=== PATIENT | female | born 1925 | race Caucasian/White ===

== ENCOUNTER 2017-01-04 14:28 | Inpatient (IN) ==
--- NOTE | 2017-01-04 14:43 | Emergency Department Note ---
Disposition Clinical Impression: Altered mental status Qualifiers: Altered mental status type: unspecified Qualified Code(s): R41.82 - Altered mental status, unspecified Disposition: Still a Patient Condition: Fair Referrals: NONE,PCP [Primary Care Provider] - Forms: ED Satisfaction Letter Fall HPI - General Chief Complaint: ED Fall Stated Complaint: Fall yesterday; AMS and combative Time Seen by Provider: 01/04/17 14:29 Source: patient, EMS Mode of arrival: EMS Limitations: altered mental status Nursing Notes Reviewed: Yes Vital Signs Reviewed: Yes - History of Present Illness HPI Narrative: 89-year-old who is here on leave from a skilled nursing in [place] with her daughter and fell last night was disoriented would not get out of bed today would not eat or drink anything and would not answer questions. Normal she does answer questions and is responsive. Arrival the patient did wake up and tell my nurse to take the socks off. Movement of all extremities on arrival. Pt Subjective Complaint: fall Onset (ago): day(s) (1) Fall From: standing Fall Witnessed: no Place Fall Occurred: home Loss of Consciousness: none Prolonged Down Time?: no Symptoms Prior to Fall: none Context: other (Patient got up last night was going to go to the bathroom but was disoriented as she doesn't normally live at this house she walked into the bathroom there was a piece of artwork leaning against a wall she thought that was the toilet seat she put it on the floor and sent out on it and broke it) Quality: other (Able to determine severity and location obtain as patient does has Alzheimer's and is unable to answer me.) - Related Data Allergies Allergy/AdvReac Type Severity Reaction Status Date / Time Sulfa (Sulfonamide Allergy Anaphylaxis Verified 01/04/17 14:47 Antibiotics) All systems ED: reviewed and negative except as stated. Constitutional: Denies: fever, chills, weakness, weight change Eyes: Denies: eye pain, eye discharge, vision change ENT ED: Denies: ear pain, throat pain, dental pain, hearing loss, epistaxis, congestion, dysphagia Cardiovascular: Denies: chest pain, palpitations, dyspnea on exertion, edema, syncope Respiratory: Denies: cough, dyspnea, wheezes, hemoptysis, stridor Gastrointestinal: Denies: abdominal pain, nausea, vomiting, diarrhea, constipation, hematemesis, melena, hematochezia Genitourinary: Denies: dysuria, frequency, hematuria, discharge Musculoskeletal: Denies: back pain, neck pain, arthralgia, myalgia Integumentary: Denies: rash, abrasion, lesions Neurological: Reports: confusion, other. Denies: headache, weakness, numbness, paresthesias, abnormal gait, vertigo Psychiatric: Denies: anxiety, depression, suicidal thoughts, homicidal thoughts , auditory hallucinations, visual hallucinations Endocrine: Denies: fatigue Hematological/Lymphatic: Denies: easy bleeding, easy bruising Allergic/Immunologic: Denies: facial swelling, urticaria Fall PMH - Past Medical History Medical history: Reports: other - Social History Smoking Status: Unknown if ever smoked Alcohol use: Reports: unknown Drug use: Reports: unknown Physical Exam - General Limitations: no limitations General appearance: alert, in no apparent distress - Head Head exam: atraumatic, normocephalic, normal inspection - Eye Eye exam: Present: normal appearance, PERRL, EOMI - ENT ENT exam: normal exam, normal oropharynx, mucous membranes moist - Neck Neck exam: Present: normal inspection, full ROM, trachea midline - Chest Chest inspection: Present: normal inspection, symmetric chest wall rise - Respiratory Respiratory exam: Present: normal lung sounds bilaterally - Cardiovascular Cardiovascular exam: Present: regular rate, normal rhythm, normal heart sounds - Abdominal Exam Abdominal exam: Present: soft, Non-Tender. Absent: tenderness, distention, guarding, rebound, rigidity - Extremities Exam Extremities exam: Present: normal inspection, full ROM. Absent: tenderness, pedal edema - Expanded Lower Extremity Exam Neurovascular/Tendon exam: Absent: motor deficit, sensory deficit, tendon deficit Gait: observed and normal Course - Reevaluation(s) Reevaluation #1: I spoke to the power of insurance defense attorney Maria Luisa Christianson who indicates the patient is a DNR and they do not want any testing done. I did discuss with the POA that she certainly could have a subdural or some other injury from the fall and she understands that they do not want anything done it would like her to have some fluids as she hasn't been drinking but they do not want any testing done. I spoke to them and they are in agreement with the plan of just fluids. Time: 14:48 Reevaluation #2: The patient was given 500 mL bolus at this point in time the patient does respond but is still somewhat lethargic. We contacted POA again and she wants to try a little more fluid and no further testing at this time including no CT scan. Time: 16:01 Reevaluation #3: Spoke again with the POA. The patient is not really improved with respect to her responsiveness. Family members were here to our do not feel comfortable taking the patient home. POA does give permission for blood work and a CT of the head. Clear whether the patient actually suffered a syncopal episode or just fell. Time: 17:39 Vital Signs Temperature 97.1 F L 01/04/17 14:29 Pulse Rate 86 01/04/17 14:29 Respiratory Rate 16 01/04/17 14:29 Blood Pressure 181/100 01/04/17 14:29 O2 Sat by Pulse Oximetry 97 01/04/17 14:29 Temperature 97.1 F L 01/04/17 14:29 Pulse Rate 63 01/04/17 16:28 Respiratory Rate 16 01/04/17 16:28 Blood Pressure 156/75 01/04/17 16:28 O2 Sat by Pulse Oximetry 97 01/04/17 16:28 Oxygen Delivery Oxygen Delivery Room Air Fall - Lab Data Result diagrams: 01/04/17 18:10 Lab Results 01/04/17 01/04/17 Range/Units 14:41 18:10 WBC 26.8 H (4.3-11.1) K/mcL RBC 4.22 (3.82-4.97) M/mcL Hgb 10.8 L (11.5-15.4) g/dL Hct 35.6 (35.3-44.9) % MCV 84.4 (83.0-100.0) fL MCH 25.6 L (28.0-33.3) pg MCHC 30.3 L (31.6-35.5) g/dL RDW 16.2 H (11.5-14.5) % Plt Count 246 (140-400) K/mcL MPV 9.1 L (9.4-12.4) fL Nucleated RBCs/100 WBC 0.1 H (0) /100 WBC Urine Color Yellow (Yellow) Urine Clarity Clear (Clear) Urine pH 6.0 (5.0-8.0) pH Units Ur Specific [place] 1.013 (1.010-1.025) Urine Protein Negative (Neg-Trace) mg/dL Urine Glucose (UA) Normal (Normal) mg/dL Urine Ketones Negative (Negative) mg/dL Urine Blood Negative (Negative) Urine Nitrite Negative (Negative) Urine Bilirubin Negative (Negative) Urine Urobilinogen Normal (Normal) mg/dL Ur Leukocyte Esterase Negative (Negative) Ur Culture Indicated? NO (NO) - EKG Data EKG attestation: Yes I reviewed and interpreted this EKG. EKG shows normal: sinus rhythm Rate: normal Rhythm: NSR Interpretation: no acute changes S.B.Brayan - Adolph.Vinayak.ATheoRTheo Recommendation: Recommendation based on pending studies, treatments, or consults S.B.A.RTheo Report Given to: Dr Vneu LaureanoBTheoAJono Repor Time: 19:00
[2017-01-04 14:47] LABS: Bilirubin,Urine Negative (Negative); Blood,Urine Negative (Negative); Clarity,Urine Clear (Clear); Color,Urine Yellow (Yellow); Glucose,Urine (UA) Normal (Normal); Ketones,Urine Negative (Negative); Leukocyte Esterase,Urine Negative (Negative); Nitrite,Urine Negative (Negative); Protein,Urine Negative (Neg-Trace); Specific Gravity,Urine 1.013 (1.010-1.025); Urobilinogen,Urine Normal (Normal)
[2017-01-04] MEDS ORDERED: 0.9 % Sodium Chloride 500 ML IVC ONE (14:55)
[2017-01-04] MEDS: 0.9 % Sodium Chloride 250 ML IVC ONE (16:27)
[2017-01-04 18:20] LABS: Hematocrit 35.6 % (35.3-44.9); Mean Platelet Volume 9.1 fL (9.4-12.4)
[2017-01-04 18:21] LABS: Hemoglobin 10.8 g/dL (11.5-15.4); Lymphocytes # 1.6 K/mcL (0.6-4.6); Mean Corpuscular HGB Conc 30.3 g/dL (31.6-35.5); Mean Corpuscular Hemoglobin 25.6 pg (28.0-33.3); Mean Corpuscular Volume 84.4 fL (83.0-100.0); Nucleated Red Blood Cells 0.1 /100 WBC (0); Platelet Count 246 K/mcL (140-400); Red Blood Count 4.22 M/mcL (3.82-4.97); Red Cell Distribution Width 16.2 % (11.5-14.5)
[2017-01-04 18:33] LABS: BUN/Creatinine Ratio 21 (6-26); Blood Urea Nitrogen 16 mg/dL (7-20); Calcium 8.9 mg/dL (8.6-10.8); Carbon Dioxide 27 mEq/L (19-29); Chloride 103 mEq/L (98-109); Glucose 115 mg/dL (70-99); Osmolality,Calculated 288 (280-300); Potassium 3.6 mEq/L (3.5-4.5); Sodium 138 mEq/L (136-145); eGFR For African Americans > 60 (> 60); eGFR For Non-African Americans > 60 (> 60)
[2017-01-04 18:49] LABS: Basophils # 0.5 K/mcL (0.0-0.2); Eosinophils # 2.1 K/mcL (0.0-0.6); Hypersegmented Neutrophils Present (Not Present); Monocytes # 3.8 K/mcL (0.0-1.3); Neutrophils # 18.8 K/mcL (1.6-8.9); Platelet Estimate Normal (Normal)
[2017-01-04 18:52] LABS: Anisocytosis 1+ (Not Present); Reactive Lymphocytes Present (Not Present)
--- NOTE | 2017-01-04 19:39 | Emergency Department Note ---
Disposition Clinical Impression: Elevated troponin I level, Multiple falls Altered mental status Qualifiers: Altered mental status type: unspecified Qualified Code(s): R41.82 - Altered mental status, unspecified Leukocytosis Qualifiers: Leukocytosis type: unspecified Qualified Code(s): D72.829 - Elevated white blood cell count, unspecified Disposition: Admitted As Inpatient Condition: Fair Referrals: NONE,PCP [Primary Care Provider] - Forms: ED Satisfaction Letter Time of Disposition: 19:40 Fall HPI - General Chief Complaint: ED Fall Stated Complaint: Fall yesterday; AMS and combative Time Seen by Provider: 01/04/17 14:29 Source: patient, EMS Mode of arrival: EMS - History of Present Illness Place Fall Occurred: home Context: other (Patient got up last night was going to go to the bathroom but was disoriented as she doesn't normally live at this house she walked into the bathroom there was a piece of artwork leaning against a wall she thought that was the toilet seat she put it on the floor and sent out on it and broke it) - Related Data Home Medications Medication Instructions Recorded Confirmed Allopurinol 01/04/17 Levothyroxine Sodium 01/04/17 Losartan 01/04/17 Allergies Allergy/AdvReac Type Severity Reaction Status Date / Time Sulfa (Sulfonamide Allergy Anaphylaxis Verified 01/04/17 14:47 Antibiotics) Constitutional: Denies: fever, chills, weakness, weight change Eyes: Denies: eye pain, eye discharge, vision change ENT ED: Denies: ear pain, throat pain, dental pain, hearing loss, epistaxis, congestion, dysphagia Cardiovascular: Denies: chest pain, palpitations, dyspnea on exertion, edema, syncope Respiratory: Denies: cough, dyspnea, wheezes, hemoptysis, stridor Gastrointestinal: Denies: abdominal pain, nausea, vomiting, diarrhea, constipation, hematemesis, melena, hematochezia Genitourinary: Denies: dysuria, frequency, hematuria, discharge Musculoskeletal: Denies: back pain, neck pain, arthralgia, myalgia Integumentary: Denies: rash, abrasion, lesions Neurological: Reports: confusion, other. Denies: headache, weakness, numbness, paresthesias, abnormal gait, vertigo Psychiatric: Denies: anxiety, depression, suicidal thoughts, homicidal thoughts , auditory hallucinations, visual hallucinations Endocrine: Denies: fatigue Hematological/Lymphatic: Denies: easy bleeding, easy bruising Allergic/Immunologic: Denies: facial swelling, urticaria Fall PMH - Past Medical History Medical history: Reports: other - Social History Smoking Status: Unknown if ever smoked Alcohol use: Reports: unknown Drug use: Reports: unknown Physical Exam - General Limitations: no limitations General appearance: alert, in no apparent distress Course Course Narrative: Signed out, See Dr. Carlin's note for further documentation history and physical , I did speak with the patient reassess, she is alert and oriented 1, appears very weak, no focal neurologic deficits, or CT imaging was negative she did have elevated leukocytosis with a lymphocyte predominance concerning for CLL with no known history per her caregivers, she is originally in a [facility] assisted living, at [facility] most of her records. She with multiple falls, no ICH on her head CT, troponin elevated 0.09 in the setting of previous CABG and heart stents, I spoke with her power of contracts attorney her daughter, who states that she is a DNR CC, DNI, and only one supportive care, lab draws are okay, supportive care such as airway suctioning, I discussed that likely she will need skilled facility placement, and the daughter agrees to inpatient admission for social work consultation, supportive care and eventual placement in [place] if possible - Reevaluation(s) Reevaluation #1: Admitted to Dr Escobedo. POA is Maria Luisa Ashfordmichael [phone]. Vital Signs Temperature 97.1 F L 01/04/17 14:29 Pulse Rate 86 01/04/17 14:29 Respiratory Rate 16 01/04/17 14:29 Blood Pressure 181/100 01/04/17 14:29 O2 Sat by Pulse Oximetry 97 01/04/17 14:29 Temperature 97.1 F L 01/04/17 14:29 Pulse Rate 52 01/04/17 20:10 Respiratory Rate 18 01/04/17 20:10 Blood Pressure 159/76 01/04/17 20:10 O2 Sat by Pulse Oximetry 96 01/04/17 20:10 Oxygen Delivery Oxygen Delivery Room Air Fall - Differential Diagnosis Likely: syncope - Medical Records Medical records reviewed: Yes I reviewed the patient's medical records. - Lab Data Lab results reviewed: Yes I reviewed the patient's lab results. Result diagrams: 01/04/17 18:10 01/04/17 18:10 Lab Results 01/04/17 01/04/17 01/04/17 Range/Units 14:41 18:10 18:10 WBC 26.8 H (4.3-11.1) K/mcL RBC 4.22 (3.82-4.97) M/mcL Hgb 10.8 L (11.5-15.4) g/dL Hct 35.6 (35.3-44.9) % MCV 84.4 (83.0-100.0) fL MCH 25.6 L (28.0-33.3) pg MCHC 30.3 L (31.6-35.5) g/dL RDW 16.2 H (11.5-14.5) % Plt Count 246 (140-400) K/mcL MPV 9.1 L (9.4-12.4) fL Seg Neutrophils % 70.0 % Lymphocytes % 6.0 % Monocytes % 14.0 % Eosinophils % 8.0 % Basophils % 2.0 % Neutrophils # 18.8 H (1.6-8.9) K/mcL Lymphocytes # 1.6 (0.6-4.6) K/mcL Monocytes # 3.8 H (0.0-1.3) K/mcL Eosinophils # 2.1 H (0.0-0.6) K/mcL Basophils # 0.5 H (0.0-0.2) K/mcL Nucleated RBCs/100 WBC 0.1 H (0) /100 WBC Hypersegmented Neuts Present A (Not Present) Reactive Lymphocytes Present A (Not Present) Platelet Estimate Normal (Normal) Anisocytosis 1+ A (Not Present) Sodium 138 (136-145) mEq/L Potassium 3.6 (3.5-4.5) mEq/L Chloride 103 (98-109) mEq/L Carbon Dioxide 27 (19-29) mEq/L BUN 16 (7-20) mg/dL Creatinine 0.78 (0.57-1.11) mg/dL Est GFR ( Amer) > 60 (> 60) Est GFR (Non-Af Amer) > 60 (> 60) BUN/Creatinine Ratio 21 (6-26) Glucose 115 H (70-99) mg/dL Calculated Osmolality 288 (280-300) Calcium 8.9 (8.6-10.8) mg/dL Troponin I (0-0.03) ng/mL Urine Color Yellow (Yellow) Urine Clarity Clear (Clear) Urine pH 6.0 (5.0-8.0) pH Units Ur Specific [place] 1.013 (1.010-1.025) Urine Protein Negative (Neg-Trace) mg/dL Urine Glucose (UA) Normal (Normal) mg/dL Urine Ketones Negative (Negative) mg/dL Urine Blood Negative (Negative) Urine Nitrite Negative (Negative) Urine Bilirubin Negative (Negative) Urine Urobilinogen Normal (Normal) mg/dL Ur Leukocyte Esterase Negative (Negative) Ur Culture Indicated? NO (NO) 01/04/17 Range/Units 18:10 WBC (4.3-11.1) K/mcL RBC (3.82-4.97) M/mcL Hgb (11.5-15.4) g/dL Hct (35.3-44.9) % MCV (83.0-100.0) fL MCH (28.0-33.3) pg MCHC (31.6-35.5) g/dL RDW (11.5-14.5) % Plt Count (140-400) K/mcL MPV (9.4-12.4) fL Seg Neutrophils % % Lymphocytes % % Monocytes % % Eosinophils % % Basophils % % Neutrophils # (1.6-8.9) K/mcL Lymphocytes # (0.6-4.6) K/mcL Monocytes # (0.0-1.3) K/mcL Eosinophils # (0.0-0.6) K/mcL Basophils # (0.0-0.2) K/mcL Nucleated RBCs/100 WBC (0) /100 WBC Hypersegmented Neuts (Not Present) Reactive Lymphocytes (Not Present) Platelet Estimate (Normal) Anisocytosis (Not Present) Sodium (136-145) mEq/L Potassium (3.5-4.5) mEq/L Chloride (98-109) mEq/L Carbon Dioxide (19-29) mEq/L BUN (7-20) mg/dL Creatinine (0.57-1.11) mg/dL Est GFR ( Amer) (> 60) Est GFR (Non-Af Amer) (> 60) BUN/Creatinine Ratio (6-26) Glucose (70-99) mg/dL Calculated Osmolality (280-300) Calcium (8.6-10.8) mg/dL Troponin I 0.09 H* (0-0.03) ng/mL Urine Color (Yellow) Urine Clarity (Clear) Urine pH (5.0-8.0) pH Units Ur Specific [place] (1.010-1.025) Urine Protein (Neg-Trace) mg/dL Urine Glucose (UA) (Normal) mg/dL Urine Ketones (Negative) mg/dL Urine Blood (Negative) Urine Nitrite (Negative) Urine Bilirubin (Negative) Urine Urobilinogen (Normal) mg/dL Ur Leukocyte Esterase (Negative) Ur Culture Indicated? (NO) - Radiology Data Radiology results reviewed: Yes I reviewed the patient's radiology results. Head CT 01/04/17 17:37 IMPRESSION: 1. No acute intracranial abnormality. 2. Moderate chronic white matter microvascular ischemic changes. 3. Remote lacunar infarct in the left caudate nucleus. D/ / Shane Marvin MD / Shane Marvin MD Interpreting Provider: Shane Marvin MD
--- NOTE | 2017-01-04 21:43 | Internal Med History&Physical ---
Date of Encounter: 01/04/17 Time of Encounter: 21:39 Assessment and Plan (1) Dementia Current visit: Yes Status: Acute Per history the patient has mild dementia We will monitor mental status closely. Avoid excessive sedation. Frequent reorientation. Delirium precautions. Fall precautions. High risk for complications due to altered mental status. Qualifiers: Dementia type: unspecified type Dementia behavioral disturbance: without behavioral disturbance Qualified Code(s): F03.90 - Unspecified dementia without behavioral disturbance (2) Hypothyroidism Current visit: Yes Status: Acute Check TSH and free T4. Qualifiers: Hypothyroidism type: unspecified Qualified Code(s): E03.9 - Hypothyroidism , unspecified (3) Altered mental status Current visit: Yes Status: Acute Could be secondary to dementia versus infection versus medication side effect, possible endocrine abnormality. Supportive care. IV fluids. Avoid sedation. Fall precautions. Qualifiers: Altered mental status type: disorientation Qualified Code(s): R41.0 - Disorientation, unspecified (4) Elevated troponin I level Current visit: Yes Status: Acute Trend troponin. Rule out ACS. The patient denies chest pain. EKG is nondiagnostic. (5) Multiple falls Current visit: Yes Status: Acute PT OT evaluation. (6) DVT prophylaxis Current visit: Yes Status: Acute Ambulate with assistance. I will avoid any anticoagulation due to recent multiple falls and high fall risk with exceedingly high risk for injury and intracranial bleed. Internal Medicine - H&P: HPI Chief complaint: Altered mental status Admitted From: Emergency Dept Plans for Post Hospital Care: Transfer Senior Care Facility History of present illness: Ms. Stewart is a 89 year old female with past medical history significant for hypothyroidism who was brought to the hospital for evaluation of altered mental status. History is limited by confusion. The history was obtained from records and discussion with the emergency department physician. I have called the family but so far I have not been able to get in touch with him. Patient is visiting her daughter and since last night she appeared to be confused. Today she suffered a fall and was found down. Per ER report she had her head. On evaluation in the emergency department she was awake alert oriented 1, not answering questions appropriately. On further workup troponin was mildly elevated. She was referred for admission and further care. Review of systems past medical history family history and social history per medical records otherwise unobtainable due to patient's dementia and altered mental status. Past Med Surg Social Fam HX - Past Medical History Medical history: other - Social History Smoking Status: Unknown if ever smoked Smokeless Tobacco Status: No Alcohol use: unknown Drug use: unknown - Family History Mother Adopted: [employer]: ROBERT Family Member Ethnicity: Non- Living Status: Age at : 89 Cause of : BREAST CANCER Hx Family Cancer: Yes Hx Family Endocrine Disorder: Yes (DM) Internal Medicine - H&P: Meds Allopurinol 01/04/17 [History] Levothyroxine Sodium 01/04/17 [History] Losartan 01/04/17 [History] Allergies Sulfa (Sulfonamide Antibiotics) Allergy (Verified 01/04/17 14:47) Anaphylaxis All Systems PM: A 10-system review of systems was performed and is negative for pertinent findings except as documented above in the HPI. - Constitutional Vitals: Temp Pulse Resp BP Pulse Ox 98.5 F 58 20 181/67 95 01/04/17 21:23 01/04/17 21:23 01/04/17 21:23 01/04/17 21:23 01/04/17 21:23 General appearance: Present: A&O X 1 - Respiratory Respiratory exam: Present: CTAB. Absent: accessory muscle use, rales, rhonchi, wheezes - Cardiovascular Cardiovascular exam: Present: RRR, +S1, +S2. Absent: diastolic murmur, gallop, rubs, systolic murmur - GI/Abdominal GI/Abdominal exam: Present: normal bowel sounds, soft, no peritoneal signs. Absent: distended, tenderness - Extremities Exam Extremities exam: Present: warm, radial pulses palpable and symetrical. Absent : calf tenderness, cyanotic, pedal edema - Neurological Exam Neurological exam: Present: CN II-XII intact, no focal deficits. Absent: pronater drift, facial droop, speech deficit - Skin Skin exam: Present: dry, intact Internal Med - H&P Results - Labs CBC & Chem 7: 01/04/17 18:10 01/04/17 18:10 - EKG Data EKG shows normal: sinus rhythm (75 BPM, nonspecific T-wave changes), axis, intervals
[2017-01-04] MEDS ORDERED: Acetaminophen 325 MG TABLET PO PRN (22:02)
[2017-01-04 22:40] LABS: Thyroid Stimulating Hormone 3.136 mcIU/mL (0.350-4.840); Triiodothyronine (T3) Free 1.73 pg/mL (1.71-3.71)
[2017-01-05] MEDS ORDERED: 0.9 % Sodium Chloride 1,000 ML IVC SCH (00:30)
[2017-01-05 01:34] LABS: Hemoglobin 9.9 g/dL (11.5-15.4); Mean Corpuscular Hemoglobin 24.8 pg (28.0-33.3); Mean Corpuscular Volume 82.7 fL (83.0-100.0); Mean Platelet Volume 8.9 fL (9.4-12.4); Nucleated Red Blood Cells 0.2 /100 WBC (0); Platelet Count 255 K/mcL (140-400); Red Blood Count 3.99 M/mcL (3.82-4.97)
[2017-01-05 01:48] LABS: BUN/Creatinine Ratio 19 (6-26); Blood Urea Nitrogen 15 mg/dL (7-20); Calcium 8.6 mg/dL (8.6-10.8); Carbon Dioxide 30 mEq/L (19-29); Chloride 104 mEq/L (98-109); Glucose 88 mg/dL (70-99); Osmolality,Calculated 288 (280-300); Potassium 3.6 mEq/L (3.5-4.5); Sodium 139 mEq/L (136-145); eGFR For African Americans > 60 (> 60); eGFR For Non-African Americans > 60 (> 60)
[2017-01-05 02:11] LABS: Eosinophils # 0.5 K/mcL (0.0-0.6); Lymphocytes # 1.9 K/mcL (0.6-4.6); Monocytes # 0.9 K/mcL (0.0-1.3)
[2017-01-05 02:12] LABS: Basophils # 1.4 K/mcL (0.0-0.2)
[2017-01-05 02:13] LABS: Platelet Estimate Normal (Normal)
[2017-01-05 02:17] LABS: Neutrophils # 15.4 K/mcL (1.6-8.9)
[2017-01-05] MEDS: 0.9 % Sodium Chloride 250 ML IVC ONE (10:35)
--- NOTE | 2017-01-05 16:38 | Internal Med Progress Note ---
Date of Encounter: 01/05/17 Time of Encounter: 09:00 - Assessment and plan (1) Altered mental status Current Visit: Yes Status: Acute Assessment and plan: Etiology is undetermined. Possibly due to mild dehydration. No signs of infection so far. Will place patient on continuous cardiac monitoring, avoid sedatives. Patient has a chronic pain pump. If mental status does not improve , may need to consider adjusting the pain pump dose. Qualifiers: Altered mental status type: disorientation Qualified Code(s): R41.0 - Disorientation, unspecified (2) Elevated troponin I level Current Visit: Yes Status: Acute Assessment and plan: Troponin 0.09/0.08/0.06. Patient denies chest pain. Probably demand ischemia. (3) Multiple falls Current Visit: Yes Status: Acute Assessment and plan: Etiology is unetermined. Patient has dementia and at old age. Will place patient on physical therapy and occupational therapy. (4) Leukocytosis Current Visit: Yes Status: Acute Assessment and plan: Probably reactive. No signs of infection so far. Will follow-up white count in a.m. Qualifiers: Leukocytosis type: leukemoid reaction Qualified Code(s): D72.823 - Leukemoid reaction (5) Dementia Current Visit: Yes Status: Acute Assessment and plan: Continue home medications Qualifiers: Dementia type: unspecified type Dementia behavioral disturbance: without behavioral disturbance Qualified Code(s): F03.90 - Unspecified dementia without behavioral disturbance (6) Hypothyroidism Current Visit: Yes Status: Acute Assessment and plan: Continue home Synthroid. TSH is within normal limits Qualifiers: Hypothyroidism type: unspecified Qualified Code(s): E03.9 - Hypothyroidism , unspecified (7) DVT prophylaxis Current Visit: Yes Status: Acute Assessment and plan: EPCD, no anticoagulation because of recent fall - Time Spent With Patient 25 - 35 minutes - Subjective Interval history: Patient is a 89-year-old female with history of dementia, hypothyroidism, hypertension admitted for altered mental status and fall. I saw and examined the patient today. Patient complain epigastric area pain. Vital signs stable. BP is high but get down on by mouth blood pressure medication. I have discussed that with the patient's daughter, POA, Ms. Maria Luisa Valencia on phone. I was told patient has chronic epigastric pain which is due to her pancreas mass. Mrs. Christianson does not want any further aggressive diagnostic or therapeutic management. We will continue IV fluid, place patient back on pureed diet. PTOT evaluation and social work consult for placement. - Constitutional Vitals: Temp Pulse Resp BP Pulse Ox 98.0 F 56 14 157/76 96 01/05/17 15:24 01/05/17 15:24 01/05/17 15:24 01/05/17 15:24 01/05/17 15:24 General appearance: Present: A&O X 1, pleasant, answers questions appropriately - Head Head exam: Present: atraumatic, normocephalic - Eye Eye exam: Present: PERRL, conjuntiva pink, sclera anicteric Pupils: Present: PERRL - Neck Neck exam general surgery: Present: supple, trachea midline. Absent: lymphadenopathy - Respiratory Respiratory exam: Present: CTAB. Absent: accessory muscle use, rales, rhonchi, wheezes - Cardiovascular Cardiovascular exam: Present: RRR, +S1, +S2. Absent: diastolic murmur, gallop, rubs, systolic murmur - GI/Abdominal GI/Abdominal exam: Present: normal bowel sounds, soft, tenderness (Mild epigastric tenderness.), no peritoneal signs. Absent: distended - Extremities Exam Extremities exam: Present: warm, radial pulses palpable and symetrical. Absent : calf tenderness, cyanotic, pedal edema - Neurological Exam Neurological exam: Present: CN II-XII intact, oriented X3, no focal deficits. Absent: pronater drift, facial droop, speech deficit - Skin Skin exam: Present: dry, intact Internal Medicine: Result - Labs CBC & Chem 7: 01/05/17 01:30 01/05/17 01:30 Labs: Short CBC 01/05/17 Range/Units 01:30 WBC 23.4 H (4.3-11.1) K/mcL Hgb 9.9 L (11.5-15.4) g/dL Hct 33.0 L (35.3-44.9) % Plt Count 255 (140-400) K/mcL Neutrophils # 15.4 H (1.6-8.9) K/mcL BMP 01/05/17 01:30 Sodium 139 Potassium 3.6 Chloride 104 Carbon Dioxide 30 H BUN 15 Creatinine 0.81 Glucose 88 Calcium 8.6 Cardiac Enzymes 01/05/17 01/05/17 Range/Units 01:30 05:49 Troponin I 0.08 H* 0.06 H* (0-0.03) ng/mL - Impressions Impressions Abdomen/Pelvis CT 01/05/17 09:17 IMPRESSION: 1. Cardiomegaly with small bilateral pleural effusions, and thickened interlobular septa likely indicating interstitial edema. There is atelectasis in both lungs 2. 3.5 x 2.8 cm mass of the tail of the pancreas. Recommend contrast-enhanced CT for better characterization 3. Borderline splenomegaly 4. Sigmoid diverticulosis 5. Small amount of free pelvic fluid 6. Status post cholecystectomy and hysterectomy D/ / Isaiah Mari MD / Isaiah Mari MD Interpreting Provider: Isaiah Mari MD Chest CT 01/05/17 09:17 IMPRESSION: 1. Cardiomegaly with small bilateral pleural effusions, and thickened interlobular septa likely indicating interstitial edema. There is atelectasis in both lungs 2. 3.5 x 2.8 cm mass of the tail of the pancreas. Recommend contrast-enhanced CT for better characterization 3. Borderline splenomegaly 4. Sigmoid diverticulosis 5. Small amount of free pelvic fluid 6. Status post cholecystectomy and hysterectomy D/ / Isaiah Mari MD / Isaiah Mari MD Interpreting Provider: Isaiah Mari MD Consult Discharge Plan - Plan Referrals: NONE,PCP [Primary Care Provider] -
--- NOTE | 2017-01-05 17:47 | Electrocardiograph Report ---
[place] [id number] Test Date: 2017-01-04 Pat Name: Jen Stewart Department: 103 Room: 3B22 Gender: F Office Support Clerk: ESTHER : [id number] Requested By: Taqueria Carlin Order Number: [id number] Reading MD: Mary Banegas Measurements Intervals [place] Rate: 76 P: 31 [place]: 181 QRS: -26 QRSD: 81 T: 76 QT: 365 QTc: 396 Interpretive Statements SINUS RHYTHM BORDERLINE LEFT AXIS DEVIATION NONSPECIFIC T-WAVE ABNORMALITY Electronically Signed On 01-05-2017 17:45:38 EDT by Mary Banegas
[2017-01-05] MEDS: 0.9 % Sodium Chloride 1,000 ML IVC SCH (23:42)
[2017-01-06 04:29] LABS: Eosinophils # 1.6 K/mcL (0.0-0.6); Hematocrit 37.7 % (35.3-44.9); Hemoglobin 11.1 g/dL (11.5-15.4); Mean Corpuscular HGB Conc 29.4 g/dL (31.6-35.5); Mean Corpuscular Hemoglobin 24.6 pg (28.0-33.3); Mean Corpuscular Volume 83.4 fL (83.0-100.0); Mean Platelet Volume 9.3 fL (9.4-12.4); Nucleated Red Blood Cells 0.3 /100 WBC (0); Platelet Count 328 K/mcL (140-400); Red Blood Count 4.52 M/mcL (3.82-4.97); Red Cell Distribution Width 15.9 % (11.5-14.5)
[2017-01-06 04:46] LABS: BUN/Creatinine Ratio 15 (6-26); Blood Urea Nitrogen 12 mg/dL (7-20); Carbon Dioxide 30 mEq/L (19-29); Chloride 102 mEq/L (98-109); Glucose 80 mg/dL (70-99); Osmolality,Calculated 287 (280-300); Potassium 3.7 mEq/L (3.5-4.5); Sodium 139 mEq/L (136-145); eGFR For African Americans > 60 (> 60); eGFR For Non-African Americans > 60 (> 60)
[2017-01-06 04:56] LABS: Basophils # 0.3 K/mcL (0.0-0.2); Platelet Estimate Normal (Normal)
[2017-01-06] MEDS: Ondansetron 4 MG/2 ML VIAL IVP PRN (05:55)
--- NOTE | 2017-01-06 09:25 | Internal Med Progress Note ---
Date of Encounter: 01/06/17 Time of Encounter: 09:25 - Assessment and plan (1) Altered mental status Current Visit: Yes Status: Acute Assessment and plan: Pt admitted for AMS, per daughter, today has become worse. Pt is not speaking and is responsive to verbal and painful stimuli. Pt was able to ambulate yesterday, however, today seems drowsy. Leukocytosis has increased today to 32.1. I have ordered a repeat that has not returned yet. I have ordered at straight cath UA/culture, prior on admission was negative. Pt did not receive any narcotic pain medications overnight. Will continue to look for source of infection and investigate reasons for AMS. Head CT 01/04/17 17:37 IMPRESSION: 1. No acute intracranial abnormality. 2. Moderate chronic white matter microvascular ischemic changes. 3. Remote lacunar infarct in the left caudate nucleus. D/ / Shane Marvin MD / Shane Marvin MD Interpreting Provider: Shane Marvin MD Chest X-Ray 01/04/17 20:38 IMPRESSION: 1. Enlarged cardiac silhouette. 2. Otherwise no acute cardiopulmonary abnormality. D/ / 01/04/2017 21:21:25 Monica Brooks MD / juliane Interpreting Provider: Monica Brooks MD Abdomen/Pelvis CT 01/05/17 09:17 IMPRESSION: 1. Cardiomegaly with small bilateral pleural effusions, and thickened interlobular septa likely indicating interstitial edema. There is atelectasis in both lungs 2. 3.5 x 2.8 cm mass of the tail of the pancreas. Recommend contrast-enhanced CT for better characterization 3. Borderline splenomegaly 4. Sigmoid diverticulosis 5. Small amount of free pelvic fluid 6. Status post cholecystectomy and hysterectomy D/ / Isaiah Mari MD / Isaiah Mari MD Interpreting Provider: Isaiah Mari MD Chest X-Ray 01/04/17 20:38 IMPRESSION: 1. Enlarged cardiac silhouette. 2. Otherwise no acute cardiopulmonary abnormality. D/ / 01/04/2017 21:21:25 Monica Brooks MD / juliane Interpreting Provider: Monica Brooks MD Chest CT 01/05/17 09:17 IMPRESSION: 1. Cardiomegaly with small bilateral pleural effusions, and thickened interlobular septa likely indicating interstitial edema. There is atelectasis in both lungs 2. 3.5 x 2.8 cm mass of the tail of the pancreas. Recommend contrast-enhanced CT for better characterization 3. Borderline splenomegaly 4. Sigmoid diverticulosis 5. Small amount of free pelvic fluid 6. Status post cholecystectomy and hysterectomy D/ / Isaiah Mari MD / Isaiah Mari MD Interpreting Provider: Isaiah Mari MD Qualifiers: Altered mental status type: disorientation Qualified Code(s): R41.0 - Disorientation, unspecified (2) Elevated troponin I level Current Visit: Yes Status: Acute Assessment and plan: Elevation was flat and adynamic, most likely due to demand. Echo yesterday showed LVEF 60-65%, mild LV hypertrophy, moderate diastolic dysfucntion, Mild AR , MR, TR, and moderate pulmonary htn. Redraw level for AMS and to assess for change in level. (3) Multiple falls Current Visit: Yes Status: Acute Assessment and plan: PT/OT pending. Pt lives in assisted living in [place]. Pt is visiting daughter. Etiology uncertain, could be multifactorial due to infection, advancing dementia , or weakness. (4) Leukocytosis Current Visit: Yes Status: Acute Assessment and plan: Significantly elevated from yesterday. Redraw pending at this time. UA ordered. Imaging appears to be negative. Pt endorses low abd pain with palpation and has increased AMS. Continue to monitor. Vitals are WNL and no sepsis criteria have been met at this time. Qualifiers: Leukocytosis type: leukemoid reaction Qualified Code(s): D72.823 - Leukemoid reaction (5) Dementia Current Visit: Yes Status: Acute Assessment and plan: Continue home medications Qualifiers: Dementia type: unspecified type Dementia behavioral disturbance: without behavioral disturbance Qualified Code(s): F03.90 - Unspecified dementia without behavioral disturbance (6) Hypothyroidism Current Visit: Yes Status: Acute Assessment and plan: Continue home medication. Chronic. Labs WNL. Qualifiers: Hypothyroidism type: unspecified Qualified Code(s): E03.9 - Hypothyroidism , unspecified (7) DVT prophylaxis Current Visit: Yes Status: Acute Assessment and plan: EPCD, no anticoagulation because of recent fall - Time Spent With Patient less than 15 minutes - Subjective Interval history: Pt was seen and assessed at 0925 this a.m. Daughter is in room. Pt is from [place] and is staying with daughter temporarily while the other daughter, who lives in [place], is on vacation. Pt opens eyes briefly to verbal stimuli , daughter states that this is a huge change from normal. Pt indicates pain to low abd with palpation. Pt does not speak, is normally verbal. - Constitutional Vitals: Temp Pulse Resp BP Pulse Ox 98.1 F 59 16 184/78 94 01/06/17 07:40 01/06/17 07:40 01/06/17 07:40 01/06/17 07:40 01/06/17 07:40 General appearance: Present: cooperative, pleasant. Absent: answers questions appropriately - Head Head exam: Present: normal inspection - Eye Eye exam: Present: normal appearance, conjuntiva pink - ENT ENT exam: Present: mucous membranes moist, normal exam, normal external ear exam - Respiratory Respiratory exam: Absent: accessory muscle use, chest wall tenderness, rales, respiratory distress, rhonchi, wheezes - Cardiovascular Cardiovascular exam: Present: RRR, +S1, +S2. Absent: diastolic murmur, systolic murmur - GI/Abdominal GI/Abdominal exam: Present: normal bowel sounds, soft, tenderness. Absent: distended - Extremities Exam Extremities exam: Present: normal capillary refill, pedal edema, radial pulses palpable and symetrical. Absent: tenderness - Neurological Exam Neurological exam: Present: altered, speech deficit. Absent: facial droop - Skin Skin exam: Present: dry, intact, warm Internal Medicine: Result - Labs CBC & Chem 7: 01/06/17 03:21 01/06/17 03:21 Labs: Short CBC 01/06/17 Range/Units 03:21 WBC 32.1 H* (4.3-11.1) K/mcL Hgb 11.1 L (11.5-15.4) g/dL Hct 37.7 (35.3-44.9) % Plt Count 328 (140-400) K/mcL Neutrophils # 27.0 H (1.6-8.9) K/mcL BMP 01/06/17 03:21 Sodium 139 Potassium 3.7 Chloride 102 Carbon Dioxide 30 H BUN 12 Creatinine 0.80 Glucose 80 Calcium 9.0 Consult Discharge Plan - Plan Referrals: NONE,PCP [Primary Care Provider] -
[2017-01-06 10:32] LABS: Bilirubin,Urine Negative (Negative); Blood,Urine Negative (Negative); Clarity,Urine Clear (Clear); Color,Urine Yellow (Yellow); Glucose,Urine (UA) Normal (Normal); Ketones,Urine Negative (Negative); Leukocyte Esterase,Urine Negative (Negative); Nitrite,Urine Negative (Negative); PH,Urine 6.5 pH Units (5.0-8.0); Protein,Urine Negative (Neg-Trace); Specific Gravity,Urine 1.009 (1.010-1.025); Urobilinogen,Urine Normal (Normal)
[2017-01-06] MEDS: 0.9 % Sodium Chloride 1,000 ML IVC SCH (11:43)
[2017-01-07] MEDS: 0.9 % Sodium Chloride 1,000 ML IVC SCH ×2 (03:10→08:22)
[2017-01-07 04:23] LABS: Mean Corpuscular Volume 83.5 fL (83.0-100.0)
[2017-01-07 04:24] LABS: Hemoglobin 10.3 g/dL (11.5-15.4); Mean Corpuscular HGB Conc 30.3 g/dL (31.6-35.5); Mean Corpuscular Hemoglobin 25.3 pg (28.0-33.3); Mean Platelet Volume 9.5 fL (9.4-12.4); Nucleated Red Blood Cells 0.3 /100 WBC (0); Platelet Count 263 K/mcL (140-400); Red Blood Count 4.07 M/mcL (3.82-4.97); Red Cell Distribution Width 16.1 % (11.5-14.5)
[2017-01-07 04:38] LABS: BUN/Creatinine Ratio 16 (6-26); Blood Urea Nitrogen 14 mg/dL (7-20); Calcium 8.9 mg/dL (8.6-10.8); Carbon Dioxide 30 mEq/L (19-29); Chloride 102 mEq/L (98-109); Glucose 89 mg/dL (70-99); Osmolality,Calculated 288 (280-300); Potassium 3.8 mEq/L (3.5-4.5); Sodium 139 mEq/L (136-145); eGFR For African Americans > 60 (> 60); eGFR For Non-African Americans > 60 (> 60)
[2017-01-07 04:59] LABS: Eosinophils # 2.1 K/mcL (0.0-0.6); Lymphocytes # 5.2 K/mcL (0.6-4.6); Monocytes # 1.1 K/mcL (0.0-1.3); Neutrophils # 15.7 K/mcL (1.6-8.9); Platelet Estimate Normal (Normal)
--- NOTE | 2017-01-07 17:24 | Discharge Summary ---
Date of Encounter: 01/07/17 Time of Encounter: 08:00 - Discharge Diagnosis (1) Altered mental status Priority: Primary Status: Acute Comments: Patient has returned to baseline. She is alert to name only. POA states that this is normal Qualifiers: Altered mental status type: disorientation Qualified Code(s): R41.0 - Disorientation, unspecified (2) Elevated troponin I level Priority: Secondary Status: Resolved Comments: Resolved. Troponin 0.03 yesterday. (3) Multiple falls Priority: Secondary Status: Acute Comments: Patient has had PT and OT evaluations. They recommended [facility] facility. Patient is going to go home with family and return to prison in [place] over the weekend. (4) Leukocytosis Priority: Secondary Status: Chronic Comments: Her daughter, patient has lymphoma. Daughter, who is POA, states that 20+ white count is normal for patient. Qualifiers: Leukocytosis type: leukemoid reaction Qualified Code(s): D72.823 - Leukemoid reaction (5) Dementia Priority: Secondary Status: Chronic Comments: Chronic. Continue home medications. Qualifiers: Dementia type: unspecified type Dementia behavioral disturbance: without behavioral disturbance Qualified Code(s): F03.90 - Unspecified dementia without behavioral disturbance (6) Hypothyroidism Priority: Secondary Status: Chronic Comments: Chronic. Continue home medications. TSH, free T4, T4, free T3 all within normal limits. Qualifiers: Hypothyroidism type: unspecified Qualified Code(s): E03.9 - Hypothyroidism , unspecified (7) DVT prophylaxis Priority: Secondary Status: Acute Comments: [facility] ED, patient is ambulatory. No pharmacological anticoagulation due to recent falls. (8) Pancreatic mass Priority: Secondary Status: Chronic Comments: 3.5 x 2.8 cm mass on the tail of the pancreas. Spoke with Maria Luisa, who is patient's POA, they are aware of this finding. Due to patient's DNR status and advanced dementia and age, they have decided to not pursue aggressive treatment. (9) Lymphoma Priority: Secondary Status: Chronic Comments: After speaking with family today, patient has history of lymphoma. Due to her advanced dementia and DNR CC, they have opted to not pursue aggressive treatment. Daughter states that elevated white count in 20+ is normal for patient. Qualifiers: Lymphoma type: unspecified type Lymphoma site: unspecified region Qualified Code(s): C85.90 - Non-Hodgkin lymphoma, unspecified, unspecified site - Discharge Medications Home Medications: Allopurinol [Zyloprim 100 MG] 100 mg PO DAILY 01/04/17 [History] Levothyroxine [Synthroid] 88 mcg PO 0630 01/04/17 [History] Losartan [Cozaar] 25 mg PO DAILY 01/04/17 [History] Donepezil [Aricept] 5 mg PO HS 01/05/17 [History] Allergies/Adverse Reactions: Allergies Sulfa (Sulfonamide Antibiotics) Allergy (Verified 01/04/17 14:47) Anaphylaxis Date of admission: 01/05/17 20:00 Primary care physician: PCP MELCHOR Discharging clinician: Huong Garner Anticipated date of discharge: 01/07/17 - Patient Status Disposition: Home, Self-Care Condition: Good Functional capacity at discharge: uses cane/walker Overall status at discharge: patient is back to baseline - Discharge Instructions Follow Up With: NONE,PCP [Primary Care Provider] - Additional Instructions: Follow up with primary care physician when she returns home. Resume normal home medications. Patient will most likely be drowsy, let her sleep. Encourage her to drink plenty of fluids when she is awake. Return to the emergency department as needed for any other problems or concerns. - Diet and Activity Activity: ambulate only with your walker, increase activity as tolerated Diet: advance to your usual diet Hospital course: Ms. Stewart is a 89 year old female with dementia, lymphoma, pancreatic mass, chronic pain, and hypothyroidism. Patient is a resident of a prison in [place]. She was brought to [place] to stay with her daughter while POA is on vacation. Daughter here [place] feels that patient was difficult to arouse and more confused than normal. Patient does appear more drowsy and difficult to arouse in the morning. Patient has chronically elevated white count, has stayed steady at 26.2 throughout visit. In discussing with daughter who is POA and on vacation, she says patient has lymphoma. This is not listed in her history and physical, and daughter who is here and lives in [place] did not seem aware of patient having lymphoma. Patient also appears to be chronically anemic. Hemoglobin is steady around 10-11 since arrival. Other labs have been within normal limits. She did have elevated troponin on arrival, this is most likely due to demand ischemia from falls, it did return to baseline yesterday. Prior to discussing leukocytosis with family today, I continue to search for source of infection since family bedside did not seem aware of why patient would have elevated white count. Urine is negative for any signs of infection. Chest x-ray shows what may be bronchitis or possibly an atypical pneumonia, this is a change from initial chest x-ray on admission.. She does have rhonchi noted in the anterior lung martins. Patient was unable to follow commands for auscultation and posterior lung martins. Patient had a chest CT on 01/05 that showed small bilateral pleural effusions and thickened interlobular septa likely indicating interstitial edema. Given that patient does not have a fever, tachycardia, hypotension, or significant change in leukocytosis or cough, patient will be treated with by mouth antibiotics. I have spoken with THOM who states that she has chronic lung disease from [employer] where she worked about 40 years ago. Patient is exceptionally drowsy in the morning, daughter, THOM, states that this is her new normal and that she sleeps a lot more than she has in the past. Daughter at bedside was also concerned that patient had not had a bowel movement in a couple of days. She has been given stool softeners and enemas today and has had a bowel movement. Abdomen is soft, tender to palpation. She does have a pain pump in her abdomen that provides Dilaudid. Daughter who is THOM also states that patient has chronic pain and if you push on her anywhere she indicates that she has pain. THOM also states that patient should sleep as much as she wants, she should be encouraged to drink when she is awake, and that anytime she has a significant change in scenery, she sleeps for several days and with enough rest and hydration, she returns to her baseline. This has been true for this visit as well. I did stress this to the family who will be caring for her here in [place]. Patient is stable and appropriate for discharge. - Time Spent with Patient Total time spent providing and/or coordinating discharge services: Less than 30 minutes - Constitutional Vitals: Temp Pulse Resp BP Pulse Ox 97.4 F L 60 16 175/95 92 01/07/17 11:15 01/07/17 11:15 01/07/17 11:15 01/07/17 11:15 01/07/17 11:15 General appearance: Present: cooperative, A&O X 1, pleasant, no acute distress. Absent: answers questions appropriately - Head Head exam: Present: normal inspection - Eye Eye exam: Present: normal appearance, conjuntiva pink - ENT ENT exam: Present: mucous membranes moist, normal exam - Neck Neck exam general surgery: Absent: lymphadenopathy, tenderness - Respiratory Respiratory exam: Present: CTAB. Absent: rales, respiratory distress, rhonchi, stridor, wheezes - Cardiovascular Cardiovascular exam: Present: RRR, +S1, +S2. Absent: diastolic murmur, systolic murmur - GI/Abdominal GI/Abdominal exam: Present: distended, normal bowel sounds, soft. Absent: hepatomegaly, tenderness - Extremities Exam Extremities exam: Present: normal inspection, pedal edema, warm, radial pulses palpable and symetrical. Absent: tenderness - Neurological Exam Neurological exam: Present: alert, altered. Absent: motor sensory deficit, oriented X3, facial droop, speech deficit - Skin Skin exam: Present: dry, normal color, warm
[2017-01-07] MEDS: Azithromycin 250 MG TABLET PO SCH (19:36)
[2017-01-08] MEDS ORDERED: amLODIPine 5 MG TABLET PO STA (00:13)
[2017-01-08] MEDS: 0.9 % Sodium Chloride 1,000 ML IVC SCH (05:58)
[2017-01-08 08:35] LABS: BUN/Creatinine Ratio 10 (6-26); Blood Urea Nitrogen 8 mg/dL (7-20); Carbon Dioxide 29 mEq/L (19-29); Chloride 102 mEq/L (98-109); Glucose 84 mg/dL (70-99); Osmolality,Calculated 290 (280-300); Potassium 3.9 mEq/L (3.5-4.5); Sodium 141 mEq/L (136-145); eGFR For African Americans > 60 (> 60); eGFR For Non-African Americans > 60 (> 60)
[2017-01-08] MEDS: Azithromycin 250 MG TABLET PO SCH (08:38)
[2017-01-08] MEDS ORDERED: amLODIPine 5 MG TABLET PO SCH (09:00)
[2017-01-08 10:12] LABS: Hematocrit 34.4 % (35.3-44.9); Hemoglobin 10.5 g/dL (11.5-15.4); Mean Corpuscular HGB Conc 30.5 g/dL (31.6-35.5); Mean Corpuscular Hemoglobin 25.2 pg (28.0-33.3); Mean Corpuscular Volume 82.5 fL (83.0-100.0); Mean Platelet Volume 8.9 fL (9.4-12.4); Nucleated Red Blood Cells 0.4 /100 WBC (0); Platelet Count 254 K/mcL (140-400); Red Blood Count 4.17 M/mcL (3.82-4.97)
[2017-01-08 10:41] LABS: Basophils # 0.6 K/mcL (0.0-0.2); Eosinophils # 1.7 K/mcL (0.0-0.6); Lymphocytes # 2.8 K/mcL (0.6-4.6); Monocytes # 1.1 K/mcL (0.0-1.3); Neutrophils # 17.2 K/mcL (1.6-8.9)
[2017-01-08 10:42] LABS: Platelet Estimate Normal (Normal)
[2017-01-08 11:04] VITALS: BP 165/75
[2017-01-08] MEDS: Ondansetron 4 MG/2 ML VIAL IVP PRN (12:32)
--- NOTE | 2017-01-08 14:20 | Internal Med Progress Note ---
Date of Encounter: 01/08/17 Time of Encounter: 08:30 - Assessment and plan (1) Altered mental status Current Visit: Yes Status: Acute Assessment and plan: Pt is more alert than she has been in previous days. She is back to baseline. Qualifiers: Altered mental status type: disorientation Qualified Code(s): R41.0 - Disorientation, unspecified (2) Elevated troponin I level Current Visit: Yes Status: Resolved Assessment and plan: Resolved. (3) Multiple falls Current Visit: Yes Status: Acute Assessment and plan: PT recommends SNF. Family is aware and will discuss when she is back home. Pt lives in assisted living in [place]. Pt is visiting daughter. (4) Leukocytosis Current Visit: Yes Status: Chronic Assessment and plan: Pt has lymphoma per daughter who is POA. Daugher who is here with pt was apparently unaware. POA states that white count is her baseline. Pt is a DNR and they have decided against aggressive treatment. Qualifiers: Leukocytosis type: leukemoid reaction Qualified Code(s): D72.823 - Leukemoid reaction (5) Dementia Current Visit: Yes Status: Chronic Assessment and plan: Continue home medications. Pt is back at baseline. Qualifiers: Dementia type: unspecified type Dementia behavioral disturbance: without behavioral disturbance Qualified Code(s): F03.90 - Unspecified dementia without behavioral disturbance (6) Hypothyroidism Current Visit: Yes Status: Chronic Assessment and plan: Continue home medication. Chronic. Labs WNL. Qualifiers: Hypothyroidism type: unspecified Qualified Code(s): E03.9 - Hypothyroidism , unspecified (7) DVT prophylaxis Current Visit: Yes Status: Acute Assessment and plan: EPCD, no anticoagulation because of recent fall (8) Pancreatic mass Current Visit: Yes Status: Chronic Assessment and plan: Chronic. Spoke with POA by phone. They have decided against aggressive treatment. (9) Lymphoma Current Visit: Yes Status: Chronic Assessment and plan: Plan as above. Qualifiers: Lymphoma type: unspecified type Lymphoma site: unspecified region Qualified Code(s): C85.90 - Non-Hodgkin lymphoma, unspecified, unspecified site - Time Spent With Patient less than 15 minutes - Subjective Interval history: Pt was seen and assessed at 0820 this a.m. Pt stayed again last night due to chest xray results. She was given zithromax and rocephin. This a.m., pt was up and alert, eating breakfast when I entered the room. She states that she feels good and wants to go home. - Constitutional Vitals: Temp Pulse Resp BP Pulse Ox 97.8 F 65 12 165/75 93 01/08/17 11:00 01/08/17 11:00 01/08/17 11:00 01/08/17 11:00 01/08/17 11:00 General appearance: Present: cooperative, A&O X 1, pleasant, no acute distress. Absent: answers questions appropriately - Head Head exam: Present: normal inspection - Eye Eye exam: Present: normal appearance, conjuntiva pink - ENT ENT exam: Present: mucous membranes moist, normal exam, normal external ear exam - Neck Neck exam general surgery: Present: normal inspection. Absent: lymphadenopathy , tenderness - Respiratory Respiratory exam: Present: CTAB. Absent: chest wall tenderness, rales, respiratory distress, rhonchi, stridor, wheezes, tachypnea - Cardiovascular Cardiovascular exam: Present: RRR, +S1, +S2, systolic murmur. Absent: clicks, diastolic murmur, gallop - Extremities Exam Extremities exam: Present: normal capillary refill, normal inspection, pedal edema, warm, radial pulses palpable and symetrical. Absent: tenderness - Neurological Exam Neurological exam: Present: alert, altered. Absent: oriented X3, facial droop, speech deficit - Skin Skin exam: Present: dry, intact, warm. Absent: rash Internal Medicine: Result - Labs CBC & Chem 7: 01/08/17 10:04 01/08/17 08:08 Labs: Short CBC 01/08/17 Range/Units 10:04 WBC 27.8 H (4.3-11.1) K/mcL Hgb 10.5 L (11.5-15.4) g/dL Hct 34.4 L (35.3-44.9) % Plt Count 254 (140-400) K/mcL Neutrophils # 17.2 H (1.6-8.9) K/mcL BMP 01/08/17 08:08 Sodium 141 Potassium 3.9 Chloride 102 Carbon Dioxide 29 BUN 8 Creatinine 0.78 Glucose 84 Calcium 9.0 Consult Discharge Plan - Plan Additional Instructions: Follow up with primary care physician when she returns home. Resume normal home medications. Patient will most likely be drowsy, let her sleep. Encourage her to drink plenty of fluids when she is awake. Return to the emergency department as needed for any other problems or concerns. Referrals: NONE,PCP [Primary Care Provider] - Prescriptions: Azithromycin [Zithromax] 250 mg PO Q24H #5 tablet
== END 2017-01-08 17:45 | disposition home or self-care (01) | DRG 884 ==
LOC: 3BNU 14:28 → EMEROO 14:28 → 3BNU 21:10
PROVIDERS: ADMIT Internal Medicine Hematology & Oncology; ATTEND Nurse Practitioner Family